=== PATIENT | female | born 1960 | race Caucasian/White ===

== ENCOUNTER → 2019-08-31 | Outpatient (CLI) | payer MEDICARE, OTHER ==
[~2019-08-31] MED LIST: ATEN50; ATEN50 PO; DULO30 PO; DULO60 PO; EFFEXOR; ESTR2; FOLI400 PO; HYDHCL25 PO; LOSHYD; LOSHYD100 PO; METF500C PO; PARO12.5; PENVK500; POLY17UD PO; POTCHL10ER PO; PRED20; Prilosec20 MG PO; Valium5 MG PO
[2019-08-31 15:40] LABS: BASOPHILS ABSOLUTE AUTO 0.05 K/mm3 (0.00-0.23); BASOPHILS PERCENT AUTO 1 % (0-2); EOSINOPHILS ABSOLUTE AUTO 0.16 K/mm3 (0.00-0.68); EOSINOPHILS PERCENT AUTO 2 % (0-6); Hemoglobin 15.5 g/dL (11.5-16.0); IMMATURE GRAN ABSOLUTE AUTO 0.02 K/mm3 (0.00-0.10); IMMATURE GRAN PERCENT AUTO 0 % (0-1); LYMPHOCYTES ABSOLUTE AUTO 1.89 K/mm3 (0.84-5.20); LYMPHOCYTES PERCENT AUTO 26 % (21-46); MONOCYTES ABSOLUTE AUTO 0.64 K/mm3 (0.16-1.47); MONOCYTES PERCENT AUTO 9 % (4-13); Mean Corpuscular HGB 29.1 pg (26.0-34.0); Mean Corpuscular HGB Conc 32.3 g/dL (31.5-36.5); Mean Corpuscular Volume 90 fL (80-100); Mean Platelet Volume 10.8 fL (9.1-12.4); NEUTROPHILS ABSOLUTE AUTO 4.39 K/mm3 (1.96-9.15); NEUTROPHILS PERCENT AUTO 61 % (41-73); Platelet Count 300 K/mm3 (150-400); RDW Coefficient Variation 13.3 % (11.7-14.2); RDW Standard Deviation 44.2 fL (35.1-46.3); Red Blood Cell Count 5.32 M/mm3 (3.80-5.20); White Blood Cell Count 7.15 K/mm3 (4.00-11.30)
[2019-08-31 15:55] LABS: Albumin/Globulin Ratio 1.1 (0.8-1.8); Bilirubin, Total 0.5 mg/dL (0.1-1.0); Bun/Creatinine Ratio 9.7 (12.0-20.0); Calcium, Blood 9.2 mg/dL (8.5-10.1); Creatinine, Blood 1.03 mg/dL (0.40-1.00); Globulin, Blood 3.7 g/dL (2.2-4.0); Potassium, Blood 3.6 mmol/L (3.5-5.5); Total Protein, Blood 7.7 g/dL (6.4-8.2)
== END ==
LOC: LAB 15:11 → LAB SHORT 15:11
PROVIDERS: Nurse Practitioner
DX: R10.9 Unspecified abdominal pain (principal)
CPT/HCPCS: 80053; 85025

== ENCOUNTER 2019-12-12 07:57 | Day surgery (SDC) | payer MEDICARE, OTHER ==
[~2019-12-12] VITALS: Ht 154.9 cm; Wt 117.4 kg
[~2019-12-12 07:57] MED LIST changes: +Ativan0.5 MG PO; +DESV50 PO; +LOSA25 PO; +METO50ER PO; +VAGIFEM10 MCG VAG; +VAGIFEM10 MCG VG
--- NOTE | 2019-12-12 08:49 | NUR ---
12/12/19 0849 CARA MERRITT RN DID IV, PT WANTED LIDOCANE. ONE BAD DUE TO VAlVE. ONE GOOD IN AC. FLUIDS HOOKED UP BY DFT
== END 2019-12-12 10:10 | disposition home or self-care (01) ==
LOC: ORSCSDS 07:57
PROVIDERS: Surgery
PROC: 0DBP8ZX Excision of Rectum, Via Natural or Artificial Opening Endoscopic, Diagnostic (ICD-10-PCS; principal; 2019-12-12 09:15)
DX: Z12.11 Encounter for screening for malignant neoplasm of colon (principal); K62.1 Rectal polyp; F41.8 Other specified anxiety disorders; I10 Essential (primary) hypertension; G47.33 Obstructive sleep apnea (adult) (pediatric); Z68.42 Body mass index [BMI] 45.0-49.9, adult; E66.01 Morbid (severe) obesity due to excess calories; Z79.899 Other long term (current) drug therapy
CPT/HCPCS: 88305; J2250; J2704

== ENCOUNTER 2022-01-19 13:51 | Emergency (ER) | payer MEDICARE, OTHER ==
[~2022-01-19] VITALS: Ht 154.9 cm; Wt 121.6 kg
[2022-01-19 14:25] LABS: BASOPHILS ABSOLUTE AUTO 0.05 K/mm3 (0.00-0.23); BASOPHILS PERCENT AUTO 1 % (0-2); EOSINOPHILS ABSOLUTE AUTO 0.17 K/mm3 (0.00-0.68); EOSINOPHILS PERCENT AUTO 4 % (0-6); Hematocrit 47.3 % (33.0-51.0); Hemoglobin 15.9 g/dL (11.5-16.0); IMMATURE GRAN PERCENT AUTO 0 % (0-1); LYMPHOCYTES PERCENT AUTO 33 % (21-46); MONOCYTES ABSOLUTE AUTO 0.59 K/mm3 (0.16-1.47); MONOCYTES PERCENT AUTO 12 % (4-13); Mean Corpuscular HGB 30.3 pg (26.0-34.0); Mean Corpuscular HGB Conc 33.6 g/dL (31.5-36.5); Mean Corpuscular Volume 90 fL (80-100); NEUTROPHILS ABSOLUTE AUTO 2.49 K/mm3 (1.96-9.15); NEUTROPHILS PERCENT AUTO 51 % (41-73); Platelet Count 224 K/mm3 (150-400); RDW Coefficient Variation 12.4 % (11.7-14.2); RDW Standard Deviation 40.8 fL (35.1-46.3); Red Blood Cell Count 5.25 M/mm3 (3.80-5.20)
[2022-01-19 14:48] LABS: Albumin, Blood 3.9 g/dL (3.4-5.0); Albumin/Globulin Ratio 1.2 (0.8-1.8); Bilirubin, Total 0.7 mg/dL (0.1-1.0); Bun/Creatinine Ratio 11.4 (12.0-20.0); Calcium, Blood 9.4 mg/dL (8.5-10.1); Creatinine, Blood 1.14 mg/dL (0.40-1.00); Globulin, Blood 3.3 g/dL (2.2-4.0); Potassium, Blood 4.4 mmol/L (3.5-5.5); Total Protein, Blood 7.2 g/dL (6.4-8.2)
[2022-01-19] MEDS ORDERED: AMLODIPINE BESYL5 MG PO (14:52)
[2022-01-19] MEDS ORDERED: LOSARTAN-HCTZ1 EAC5 PO (14:53)
[2022-01-19] MEDS ORDERED: COLESTIPOL HCL1 G1 PO (14:53)
[2022-01-19] MEDS ORDERED: GLIMEPIRIDE2 M2 PO (14:53)
[2022-01-19] MEDS ORDERED: IBUP600 PO (17:50)
== END 2022-01-19 18:12 | disposition home or self-care (01) ==
LOC: ER 13:51
PROVIDERS: Physician Assistant
DX: R07.9 Chest pain, unspecified (principal); I10 Essential (primary) hypertension; Z79.899 Other long term (current) drug therapy
CPT/HCPCS: 36415; 71046; 80053; 83690; 83880; 84484; 85025; 93005; 93010; 96374; 99285-25; J1885

== ENCOUNTER 2022-04-22 10:20 | Emergency (ER) | payer MEDICARE, OTHER ==
[~2022-04-22] VITALS: Ht 154.9 cm; Wt 117.9 kg
[~2022-04-22 10:20] MED LIST changes: +AMLODIPINE BESYL5 MG PO; +COLESTIPOL HCL1 G1 PO; +GLIMEPIRIDE2 M2 PO; +IBUP600 PO; +LOSARTAN-HCTZ1 EAC5 PO
[2022-04-22] MEDS ORDERED: LIDO700A20 TOP (12:46)
== END 2022-04-22 12:56 | disposition home or self-care (01) ==
LOC: ER 10:20
DX: S83.92XA Sprain of unspecified site of left knee, initial encounter (principal); M17.12 Unilateral primary osteoarthritis, left knee; I10 Essential (primary) hypertension; F41.9 Anxiety disorder, unspecified; F32.A Depression, unspecified; Z79.899 Other long term (current) drug therapy; Z79.84 Long term (current) use of oral hypoglycemic drugs; X58.XXXA Exposure to other specified factors, initial encounter; Y93.01 Activity, walking, marching and hiking
CPT/HCPCS: 73562-LT; A9270

== ENCOUNTER → 2023-08-12 | Outpatient (CLI) | payer MEDICARE, OTHER ==
[~2023-08-12] MED LIST changes: +LIDO700A20 TOP
== END ==
LOC: LAB SHORT 12:00 → LAB 12:00
DX: R73.03 Prediabetes (principal); R73.9 Hyperglycemia, unspecified; E04.1 Nontoxic single thyroid nodule
CPT/HCPCS: 83036

== ENCOUNTER 2025-05-29 05:56 | Day surgery (SDC) | payer MEDICARE ==
[2025-05-29] VITALS (8 sets, daily range): BP systolic 107–144; BP diastolic 67–82
[2025-05-29] MEDS ORDERED: ATOR40TA PO (06:15)
[2025-05-29] MEDS ORDERED: ELIQUIS5 M2 PO (06:15)
[2025-05-29] MEDS ORDERED: FURO20 PO (06:16)
[2025-05-29] MEDS ORDERED: GLIP10 PO (06:16)
[2025-05-29] MEDS ORDERED: BASAGLAR K100 UNIT/6 SC (06:17)
[2025-05-29] MEDS ORDERED: LOSA50 PO (06:18)
[2025-05-29] MEDS ORDERED: SPIR25 PO (06:19)
[2025-05-29] MEDS ORDERED: Phentermine HCl15 MG PO (06:19)
[2025-05-29] MEDS ORDERED: NS 1,000 ML IV ONE (06:39)
--- NOTE | 2025-05-29 07:50 | NUR ---
PT VERBALIZED UNDERSTANDING OF WRITTEN AND VERBAL D/C INST. IV REMOVED. SR 65BPM ON D/C. PT TAKEN OUT OF THE [facility] VIA W/C.
--- NOTE | 2025-05-29 07:50 | NUR ---
ASSUMED CARE FROM ANESTHESIA. PT AWAKE AND VERBALIZING WELL. SR 60-65BPM POST CARDIOVERSION.
[2025-05-29] MEDS ORDERED: Propofol 10mg/ml 20 ml Vial (Procedural) IV ONE (16:08)
== END 2025-05-29 23:00 | disposition home or self-care (01) ==
LOC: MHTC 05:56
DX: I48.19 Other persistent atrial fibrillation (principal); I11.0 Hypertensive heart disease with heart failure; I50.30 Unspecified diastolic (congestive) heart failure; E11.9 Type 2 diabetes mellitus without complications; G47.33 Obstructive sleep apnea (adult) (pediatric); E66.01 Morbid (severe) obesity due to excess calories; Z79.01 Long term (current) use of anticoagulants; Z79.84 Long term (current) use of oral hypoglycemic drugs; Z79.899 Other long term (current) drug therapy
CPT/HCPCS: 92960; J2704; J7030

== ENCOUNTER → 2025-11-03 | Outpatient (CLI) | payer MEDICARE ==
[~2025-11-03] MED LIST changes: +ATOR40TA PO; +BASAGLAR K100 UNIT/6 SC; +ELIQUIS5 M2 PO; +FURO20 PO; +GLIP10 PO; +LOSA50 PO; +Phentermine HCl15 MG PO; +SPIR25 PO
[2025-11-03 22:02] LABS: Microalbumin, Urine Quant. 6.19 mg/L (0.000-20.000); Protein, Urine Quantitative 6.2 mg/dL (0.0-11.9)
[2025-11-07 19:55] LABS: ALBUMIN %,URINE 100.0 %; ALPHA-1 %,URINE 0.0 %; ALPHA-2 %,URINE 0.0 %; BETA GLOBULIN %,URINE 0.0 %; GAMMA GLOBULIN %,URINE 0.0 %; HOURS COLLECTED 24 hr; PARAPROTEIN %,URINE 0.0 %; PARAPROTEIN EXCRETION/24 HOUR 0.0
== END | disposition home or self-care (01) ==
LOC: LAB SHORT 07:00 → LAB 07:00 → LAB FUT 10-14 14:50
PROVIDERS: Internal Medicine Nephrology
DX: N18.30 Chronic kidney disease, stage 3 unspecified (principal); D63.1 Anemia in chronic kidney disease; E55.9 Vitamin D deficiency, unspecified; E78.00 Pure hypercholesterolemia, unspecified; G60.9 Hereditary and idiopathic neuropathy, unspecified; D51.8 Other vitamin B12 deficiency anemias; D52.8 Other folate deficiency anemias; D50.9 Iron deficiency anemia, unspecified; R76.9 Abnormal immunological finding in serum, unspecified; R94.5 Abnormal results of liver function studies; R94.6 Abnormal results of thyroid function studies
CPT/HCPCS: 81050; 82043; 82570; 84156; 84166; 86335